=== PATIENT | male | born 2000 | race American Indian/Alaskan Native ===

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

== ENCOUNTER 2024-08-27 12:56 | Emergency (ER) | payer MEDICAID ==
[2024-08-27] MEDS: Ketorolac 30 MG/ML SDV IM ONE (13:40)
[2024-08-27] MEDS: Acetaminophen 325 MG Tab PO ONE (13:41)
[2024-08-27] MEDS: Take Home: Cyclobenzaprine 10 MG Tab, 4 Tab Pack PO ONE (13:41)
[2024-08-27] MEDS: Diclofenac Sodium 1% Gel 100 GM Tube TOP ONE (13:51)
== END 2024-08-27 13:54 | disposition home or self-care (01) ==
LOC: DL.ED 12:56
DX: M79.601 Pain in right arm (principal)
CPT/HCPCS: 96372; 99283; A9270; J1885